=== PATIENT | male | born 1980 | race African-American/Black ===

== ENCOUNTER 2021-01-18 01:22 | Emergency (ER) | payer BC, OTHER ==
[~2021-01-18] VITALS: Ht 188 cm; Wt 113.4 kg
--- NOTE | 2021-01-18 02:10 | NUR ---
PT BIBSELF C/O N/V AND HEADACHE. PT AAOX4 BREATHING EVENLY AND UNLABORED. PT STATES HE HAS HAD "OVER 10 EPISODES OF VOMITING" UNABLE TO KEEP WATER DOWN. PT STATES HE HAS ALSO HAD A LEFT SIDED HEADACHE SINCE 1500. SKIN WARM, DRY, AND INTACT. PT ATTACHED TO MONITOR AND POX. CALL LIGHT WITHIN REACH. WILL CONTINUE TO MONITOR.
--- NOTE | 2021-01-18 02:15 | NUR ---
pt unable to give urine sample at this time. MD hyde
--- NOTE | 2021-01-18 02:20 | NUR ---
blood obtained and sent to lab
[2021-01-18] MEDS ORDERED: IV NS 0.9% 1,000 ML IV ONE (02:30)
[2021-01-18] MEDS ORDERED: ONDANSETRON HCL/PF - ER 4 MG/2 ML VIAL IV ONE (02:30)
[2021-01-18] MEDS ORDERED: ONDANSETRON HCL/PF 4 MG/2 ML VIAL ONE (02:34)
[2021-01-18 02:44] LABS: BASOPHILS # (AUTO) 0.1 /CMM (0.0-0.2); BASOPHILS % (AUTO) 1.5 % (0.0-2.0); EOSINOPHILS % (AUTO) 0.8 % (0.0-6.0); HEMATOCRIT 43 % (39-51); HEMOGLOBIN 14.3 g/dL (13.5-17.5); LYMPHOCYTES # (AUTO) 0.9 /CMM (0.8-4.8); LYMPHOCYTES % (AUTO) 9.5 % (20.0-44.0); MEAN CORPUSCULAR HGB CONC 34 g/dl (31.0-36.0); MEAN CORPUSCULAR VOLUME 90 fL (80-96); MONOCYTES # (AUTO) 0.3 /CMM (0.1-1.30); MONOCYTES % (AUTO) 3.1 % (2.0-12.0); NEUTROPHILS # (AUTO) 8.2 /CMM (1.8-8.9); NEUTROPHILS % (AUTO) 85.1 % (43.0-81.0); PLATELET COUNT (AUTO) 342 /CMM (150-450); RED BLOOD CELL COUNT(AUTO) 4.75 MIL/uL (4.5-6.0); WHITE BLOOD COUNT (AUTO) 9.6 K/uL (4.3-11.0)
[2021-01-18 03:02] LABS: ALBUMIN 4.2 g/dL (3.4-5.0); BILIRUBIN,DIRECT 0.1 mg/dL (0.0-0.2); BILIRUBIN,TOTAL 0.5 mg/dL (0.2-1.0); CALCIUM, SERUM 9.4 mg/dL (8.5-10.1); POTASSIUM 3.7 mmol/L (3.5-5.1); TOTAL PROTEIN, SERUM 8.1 g/dL (6.4-8.2)
[2021-01-18 03:10] LABS: BILIRUBIN,URINE NEGATIVE (NEGATIVE); COLOR,URINE YELLOW (YELLOW); LEUKOCYTE ESTERASE ,URINE NEGATIVE (NEGATIVE); NITRITE, URINE NEGATIVE (NEGATIVE); PH,URINE 7.5 (5.0-8.0); PROTEIN,URINE TRACE mg/dl (NEGATIVE); UGLUCOSE 250 MG/DL mg/dL (NEGATIVE); UROBILINOGEN,URINE 0.2 EU/dL (0.2)
[2021-01-18 03:16] LABS: BACTERIA,URINE Rare /HPF (None Seen); MUCUS,URINE Few /LPF (None Seen); RBC,URINE 0-2 /HPF (0-2); SQUAMOUS EPITHELIAL CELL,UR Rare /HPF (None Seen); WBC,URINE 0-2 /HPF (0-3)
[2021-01-18] MEDS ORDERED: KETOROLAC TROMETHAMINE INJ 30 MG/ML VIAL ONE (05:39)
--- NOTE | 2021-01-18 05:44 | NUR ---
VERBAL ORDER TORADOL 30MG IV LEFT AC 20G CARRIED OUT
[2021-01-18] MEDS ORDERED: ONDA4TAB5 PO (05:52)
[2021-01-18] MEDS ORDERED: TRAM50TA2 PO ×2 (05:52→05:53)
--- NOTE | 2021-01-18 05:57 | NUR ---
Patient discharged to home in stable condition. Written and verbal after care instructions given. Patient verbalizes understanding of instruction. IV removed. Catheter intact and site benign. Pressure and 4x4 applied to site. No bleeding noted.Pt ambulatory with a steady gait
[2021-01-18 06:00] VITALS: BP 145/84
[2021-01-18] MEDS ORDERED: KETOROLAC TROMETHAMINE INJ 30 MG/ML VIAL IV ONE (06:00)
== END 2021-01-18 05:57 | disposition home or self-care (01) ==
LOC: ER 01:25
DX: G43.909 Migraine, unspecified, not intractable, without status migrainosus (principal); R11.2 Nausea with vomiting, unspecified; E11.9 Type 2 diabetes mellitus without complications; Z88.0 Allergy status to penicillin
CPT/HCPCS: 36415; 80048; 80076; 81001; 82962; 83690; 85025; 96361; 96374; 96375; 99285; J1885; J2405 ×2